=== PATIENT | female | born 1965 | race Caucasian/White ===

== ENCOUNTER 2022-09-01 19:11 | Emergency (ER) | payer OTHER ==
[2022-09-01 19:26] VITALS: BP 145/81; PULSE 83; RESP 19; TEMP 98.2; BMI 32.5
[2022-09-01] MEDS ORDERED: IBUPROFEN 400 MG TABLET (FP) PO ONE ×2 (20:19→21:17)
[2022-09-01 21:35] LABS: BASO % 0.6 % (0-2.0); EOS % 1.1 % (0-4.5); HEMATOCRIT 44.4 % (32.4-45.2); HEMOGLOBIN 14.8 GM/dL (10.7-15.3); LYMPH % 31.5 % (8-40); MCHC 33.4 g/dl (32.0-36.0); MEAN PLT VOLUME 9.8 fl (7.5-11.1); MONO % 5.2 % (3.8-10.2); NEUT % 61.6 % (42.8-82.8); PLATELET COUNT 262 10^3/uL (134-434); RBC 5.11 M/mm3 (3.60-5.2); RDW 12.7 % (11.6-15.6); WHITE BLOOD COUNT 9.5 K/mm3 (4.0-10.0)
[2022-09-01 21:54] LABS: POTASSIUM 4.1 mmol/L (3.5-5.1)
[2022-09-01 21:56] LABS: ALBUMIN 4.1 g/dl (3.4-5.0); CALCIUM 9.4 mg/dL (8.5-10.1)
[2022-09-01 21:57] LABS: BLOOD UREA NITROGEN 14.2 mg/dL (7-18)
[2022-09-01 21:59] LABS: CREATININE 0.7 mg/dL (0.55-1.3)
[2022-09-01 22:00] LABS: BILIRUBIN,TOTAL 0.4 mg/dL (0.2-1); TOT PROT 7.4 g/dl (6.4-8.2)
== END 2022-09-01 22:55 | disposition home or self-care (01) ==
LOC: JER 19:11
DX: R07.89 Other chest pain (principal); S29.011A Strain of muscle and tendon of front wall of thorax, initial encounter; R06.00 Dyspnea, unspecified
CPT/HCPCS: 36415; 71045-TC-FY; 80053; 84484; 85025; 93005; 93010; 99285-25